=== PATIENT | male | born 1950 | race Caucasian/White ===

== ENCOUNTER 2019-05-25 08:32 | Day surgery (SDC) | payer MEDICARE, OTHER ==
[2019-05-25] VITALS (7 sets, daily range): BP systolic 117–149; BP diastolic 92–118; PULSE 112–122; TEMP 98.6
[~2019-05-25] VITALS: Ht 177.8 cm; Wt 122.0 kg
[2019-05-25 09:16] LABS: BASO # 0.1 (0.0-0.2); BASO % 1.1 % (0.0-2.0); EOS # 0.1 (0.0-0.7); EOS % 1.3 % (0-4.0); GRAN # 3.3 (1.4-6.5); GRAN % 61.7 % (42.2-75.2); HEMATOCRIT 51.4 % (42.0-52.0); HEMOGLOBIN 17.2 g/dl (13.5-18.0); LYMPH # 1.3 (1.2-3.4); LYMPH % 24.6 % (20.0-51.0); MEAN CELL VOLUME 90 fl (80.0-100.0); MEAN CORPUSCULAR HEMOGLOBIN 30 pg (27.0-31.0); MEAN CORPUSCULAR HGB CONC 34 g/dl (33.0-37.0); MEAN PLATELET VOLUME 10.6 fl (7.4-10.4); MONO # 0.6 (0.1-0.6); MONO % 11.1 % (1.7-9.3); PLATELET COUNT 115 K/mm3 (130-400); RED BLOOD COUNT 5.72 M/mm3 (4.20-5.60); REDCELL DISTRIBUTION WIDTH-CV 13.8 % (11.5-14.5)
[2019-05-25 09:21] LABS: PROTHROMBIN TIME 11.6 SECONDS (9.7-12.8)
[2019-05-25 09:24] LABS: PARTIAL THROMBOPLASTIN TIME 31.4 SECONDS (26.0-37.0)
[2019-05-25] MEDS ORDERED: COREG12.5 MG PO (09:26)
[2019-05-25 09:27] LABS: CALCIUM 9.4 mg/dL (8.4-10.2); CREATININE, serum 0.83 (0.66-1.25); MAGNESIUM 2.2 mg/dL (1.6-2.3); POTASSIUM 4.4 mmol/L (3.4-5.0)
[2019-05-25] MEDS ORDERED: FLONASE NASAL S16 GM NS (09:27)
[2019-05-25] MEDS ORDERED: NITROSTAT0.4 MG/TAB SL (09:27)
[2019-05-25] MEDS ORDERED: COLACE 100100 MG/CAP PO (09:28)
[2019-05-25] MEDS ORDERED: ELIQUIS 5MG PO (09:28)
[2019-05-25] MEDS ORDERED: ANTIVERT 25MG25 MG PO (09:29)
[2019-05-25] MEDS ORDERED: MULTI VITAMINS1 TAB PO (09:29)
[2019-05-25] MEDS ORDERED: EPA FISH OIL1 SGL PO (09:29)
[2019-05-25] MEDS ORDERED: TYLENOL 500MG500 MG PO (09:30)
[2019-05-25 09:57] LABS: THYROID STIMULATING HORMONE 2.82 uIU/mL (0.465-4.680)
[2019-05-25] MEDS ORDERED: ALDACTONE 25MG25 M1 PO (11:18)
[2019-05-25] MEDS ORDERED: DEMADEX10 MG PO (11:18)
[2019-05-25] MEDS ORDERED: LANOXIN 0.25M0.25 MG PO (11:19)
--- NOTE | 2019-05-25 11:30 | NUR ---
Report from Jesse Nguyễn RN. JOSE complete, no CV performed. Pt resting well, family at bedside.
--- NOTE | 2019-05-25 13:00 | NUR ---
Pt has ambulated, voided and britt PO intake s n/v.
--- NOTE | 2019-05-25 13:25 | NUR ---
PIV removed with catheter intact.
--- NOTE | 2019-05-25 13:30 | NUR ---
Pt discharged per w/c by nurse with sister.
--- NOTE | 2019-05-25 13:43 | NUR ---
print room worker spoke with Karine, nurse regarding order for psychosocial rehabilitation counselor. Karine states patient did not admit to the hospital, rather was discharged to home. Karine states that there are no needs at this time.
== END 2019-05-25 14:41 | disposition home or self-care (01) ==
LOC: SDCO 08:32
PROVIDERS: Internal Medicine Cardiovascular Disease
DX: I48.0 Paroxysmal atrial fibrillation (principal); I08.1 Rheumatic disorders of both mitral and tricuspid valves; I10 Essential (primary) hypertension; E78.5 Hyperlipidemia, unspecified; I25.10 Atherosclerotic heart disease of native coronary artery without angina pectoris; E78.00 Pure hypercholesterolemia, unspecified; Z87.891 Personal history of nicotine dependence; Z79.01 Long term (current) use of anticoagulants
CPT/HCPCS: J2704

== ENCOUNTER 2019-07-08 07:48 | Day surgery (SDC) | payer MEDICARE, OTHER ==
[2019-07-08] VITALS (7 sets, daily range): BP systolic 114–137; BP diastolic 70–96; PULSE 65–76; TEMP 98.7
[~2019-07-08] VITALS: Ht 177.8 cm; Wt 118.6 kg
[~2019-07-08 07:48] MED LIST: ALDACTONE 25MG25 M1 PO; ANTIVERT 25MG25 MG PO; COLACE 100100 MG/CAP PO; COREG12.5 MG PO; DEMADEX10 MG PO; ELIQUIS 5MG PO; EPA FISH OIL1 SGL PO; FLONASE NASAL S16 GM NS; LANOXIN 0.25M0.25 MG PO; MULTI VITAMINS1 TAB PO; NITROSTAT0.4 MG/TAB SL; TYLENOL 500MG500 MG PO
[2019-07-08 08:27] LABS: HEMATOCRIT 51.9 % (42.0-52.0); HEMOGLOBIN 17.6 g/dl (13.5-18.0); MEAN CELL VOLUME 89 fl (80.0-100.0); MEAN CORPUSCULAR HEMOGLOBIN 30 pg (27.0-31.0); MEAN CORPUSCULAR HGB CONC 34 g/dl (33.0-37.0); MEAN PLATELET VOLUME 11.1 fl (7.4-10.4); PLATELET COUNT 117 K/mm3 (130-400); RED BLOOD COUNT 5.84 M/mm3 (4.20-5.60); REDCELL DISTRIBUTION WIDTH-CV 13.7 % (11.5-14.5)
[2019-07-08 08:33] LABS: INR 1.2 (0.8-3.0); PROTHROMBIN TIME 13.8 SECONDS (9.7-12.8)
[2019-07-08 08:35] LABS: PARTIAL THROMBOPLASTIN TIME 33.3 SECONDS (26.0-37.0)
[2019-07-08 08:41] LABS: CALCIUM 9.3 mg/dL (8.4-10.2); CREATININE, serum 0.84 (0.66-1.25); MAGNESIUM 2.1 mg/dL (1.6-2.3); POTASSIUM 4.3 mmol/L (3.4-5.0)
[2019-07-08] MEDS ORDERED: LANOXIN 0.25M0.25 MG PO (09:06)
[2019-07-08] MEDS ORDERED: ALDACTONE 25MG25 M1 PO (09:08)
[2019-07-08 09:10] LABS: THYROID STIMULATING HORMONE 4.99 uIU/mL (0.465-4.680)
[2019-07-08] MEDS ORDERED: DEMADEX10 MG PO (09:10)
[2019-07-08] MEDS ORDERED: MIRALAX PA17 GM/Dose PO (09:11)
[2019-07-08] MEDS ORDERED: AIRBORNE PO (09:23)
--- NOTE | 2019-07-08 11:05 | NUR ---
Report received from FRANKIE Du.
[2019-07-08] MEDS ORDERED: PACERONE400 MG PO (11:50)
--- NOTE | 2019-07-08 12:50 | NUR ---
Discharge instructions given to pt.pt verbalizes understanding.INT removed,catheter tip intact.pt escorted out via wheelchair by this nurse.
== END 2019-07-08 13:00 | disposition home or self-care (01) ==
LOC: COL.CAR 07:48
PROVIDERS: Internal Medicine Cardiovascular Disease
DX: I48.0 Paroxysmal atrial fibrillation (principal); I25.10 Atherosclerotic heart disease of native coronary artery without angina pectoris; I10 Essential (primary) hypertension; E78.00 Pure hypercholesterolemia, unspecified; Z79.01 Long term (current) use of anticoagulants; Z87.891 Personal history of nicotine dependence; Z82.49 Family history of ischemic heart disease and other diseases of the circulatory system
CPT/HCPCS: J2250; J2704; J7120

== ENCOUNTER 2021-03-27 11:52 | Day surgery (SDC) | payer MEDICARE, OTHER ==
[~2021-03-27] VITALS: Ht 177.8 cm; Wt 119.0 kg
[~2021-03-27 11:52] MED LIST changes: +AIRBORNE PO; +DUO-KAPS1 CAP PO; +MIRALAX PA17 GM/Dose PO; -MULTI VITAMINS1 TAB PO; +PACERONE400 MG PO
--- NOTE | 2021-03-27 12:10 | NUR ---
Patient ambulated back to bay #1 with a steady gait. Medications reviewed. Vitals obtained. Consent signed. IV started in his right hand on first attempt with #20. LR is infusing without difficulty. Lung sounds are clear. Heart is in sinus rythm. Bowel sounds are audiable. RT is schedule to provide 12 lead EKG per orders. Patient has a warm blanket, non-slip socks on. Will continue to monitor.
[2021-03-27 12:26] VITALS: BP 129/72; PULSE 58; TEMP 98.6
[2021-03-27] MEDS ORDERED: CORDARONE200 MG/TAB PO (12:34)
[2021-03-27] MEDS ORDERED: ASPIRIN E.C. 8181 MG PO (12:35)
[2021-03-27] MEDS ORDERED: DEMADEX10 MG PO (12:35)
[2021-03-27] MEDS ORDERED: PLAVIX 75MG TAB75 MG PO ×2 (12:35→12:37)
[2021-03-27] MEDS ORDERED: CRESTOR 10MG10 MG PO (12:36)
[2021-03-27] MEDS ORDERED: NORCO 325 MG-51 TAB PO (16:25)
--- NOTE | 2021-03-27 17:08 | NUR ---
SOFTWARE QA SYSTEM SPECIALIST Maddison called to give report. Per report patient is doing well but is experiencing a little discomfort and refused narcotic pain medication. To monitor and obtain vitals when patient arrives back in bay #1. Patients sister is present in room and has recieved an update.
[2021-03-27 17:15] VITALS: BP 137/68; PULSE 62
--- NOTE | 2021-03-27 17:15 | NUR ---
Patient arrived on a cart from PACU. Vitals obtained. Patient requested a zero sugar sprite and saltines. Denies N/V and is tolerating it well. Will continue to monitor.
[2021-03-27 17:30] VITALS: BP 135/62; PULSE 63; TEMP 97.8
--- NOTE | 2021-03-27 17:35 | NUR ---
Patient is alert and oriented x3; requested more saltines. He states a desire to be discharged. RN informed him of our discharge policy and informed him about the importance of voiding before discharge. Patient verbalized understanding. Vitals obtained. Will continue to monitor.
[2021-03-27 17:45] VITALS: BP 138/68; PULSE 81
[2021-03-27 18:00] VITALS: BP 131/66; PULSE 81
--- NOTE | 2021-03-27 18:00 | NUR ---
Discharge instructions reviewed with patient and his sister. Patient verbalized understanding. Vitals obtained. IV discontinued at this time. No redness/swelling or edema. Catheter intact. RN assisted patient while changing.
--- NOTE | 2021-03-27 18:20 | NUR ---
Patient escorted out via wheelchair to Deanna Salgado RN. Accompanied by his sister who is driving. Patient transferred into her care. Patient has his belongings and his discharge information. States no further questions or concerns.
[2021-03-27 18:54] VITALS: BP 141/75; PULSE 61; TEMP 98.3
== END 2021-03-27 18:26 | disposition home or self-care (01) ==
LOC: SDCO 11:52
DX: K40.90 Unilateral inguinal hernia, without obstruction or gangrene, not specified as recurrent (principal); I25.10 Atherosclerotic heart disease of native coronary artery without angina pectoris; E78.5 Hyperlipidemia, unspecified; I10 Essential (primary) hypertension; E66.9 Obesity, unspecified; I48.91 Unspecified atrial fibrillation; Z79.899 Other long term (current) drug therapy; Z79.02 Long term (current) use of antithrombotics/antiplatelets
CPT/HCPCS: C1781; J0690; J1100; J2405; J2704; J3010; J7120